=== PATIENT | female | born 1995 | race African-American/Black ===

== ENCOUNTER 2020-01-06 02:52 | Emergency (ER) | payer SELFPAY ==
[~2020-01-06] VITALS: Ht 177.8 cm; Wt 56.0 kg
[2020-01-06 02:55] VITALS: BP 128/72
== END 2020-01-06 04:40 | disposition left against medical advice (07) ==
LOC: ER 02:52
DX: R51.9 Headache, unspecified (principal); Z53.21 Procedure and treatment not carried out due to patient leaving prior to being seen by health care provider